=== PATIENT | male | born 1955 | race Caucasian/White ===

== ENCOUNTER 2021-05-21 23:43 | Inpatient (IN) ==
[2021-05-22 00:20] LABS: ABS Basophils 0.1 10^3/ul (0-0.2); ABS Eosinophils 0.5 10^3/ul (0-0.6); ABS Lymphocytes 1.8 10^3/ul (1.0-4.8); ABS Monocytes 0.6 10^3/ul (0-0.8); ABS Neutrophils 4.6 10^3/ul (1.5-7.7); Eosinophil % 7.1 %; Hematocrit 31 % (42-52); Hemoglobin 9.9 g/dL (14.0-18.0); Lymphocyte % 23.9 %; Mean Corpuscular HGB Conc 32 g/dL (31-36); Mean Corpuscular Hemoglobin 25 pg (27-31); Mean Corpuscular Volume 77 fL (80-94); Mean Platelet Volume 6.9 fL (7.4-10.4); Platelet Count 292 10^3/uL (150-450); Red Blood Count 3.97 10^6 /uL (4.18-5.48); Red Cell Distribution Width 16 % (10-15); White Blood Count 7.5 10^3/uL (3.5-10.8)
[2021-05-22 01:10] LABS: Albumin 3.6 g/dL (3.2-5.2); Albumin/Globulin Ratio 1.1 (1-3); EGFR African American 99.3 (>60); EGFR Non-African American 82.1 (>60); Globulin 3.3 g/dL (2-4); Potassium 3.8 mmol/L (3.5-5.0); Total Bilirubin 0.3 mg/dL (0.2-1.0); Total Protein 6.9 g/dL (6.4-8.9)
[2021-05-22] MEDS ORDERED: Iohexol 300 (CONTRAST) 10 ML SDV IV ONE (02:10)
[2021-05-22] MEDS ORDERED: Senna TAB 8.6 mg TAB PO PRN (06:13)
[2021-05-22] MEDS ORDERED: Polyethylene Glycol 3350 17 GM PACKET PO PRN (06:13)
[2021-05-22] MEDS ORDERED: NS 0.9% 500 ml BAG 500 ML IV ONE (06:24)
[2021-05-22 09:13] LABS: ABS Eosinophils 0.1 10^3/ul (0-0.6); ABS Lymphocytes 1.2 10^3/ul (1.0-4.8); ABS Monocytes 0.7 10^3/ul (0-0.8); ABS Neutrophils 8.5 10^3/ul (1.5-7.7); Eosinophil % 0.6 %; Hematocrit 31 % (42-52); Hemoglobin 9.7 g/dL (14.0-18.0); Mean Corpuscular HGB Conc 32 g/dL (31-36); Mean Corpuscular Hemoglobin 24 pg (27-31); Mean Corpuscular Volume 76 fL (80-94); Mean Platelet Volume 6.8 fL (7.4-10.4); Platelet Count 279 10^3/uL (150-450); Red Cell Distribution Width 16 % (10-15); White Blood Count 10.5 10^3/uL (3.5-10.8)
[2021-05-22 09:29] LABS: INR 1.2 (0.86-1.15)
[2021-05-22 09:31] LABS: Calcium 9.1 mg/dL (8.6-10.3); EGFR African American 118.1 (>60); EGFR Non-African American 97.6 (>60); Potassium 4.2 mmol/L (3.5-5.0)
[2021-05-22 10:10] LABS: % Iron Saturation 11 % (15-55); Iron 40 ug/dL (50-212); Total Iron Binding Capacity 377 mcg/dL (250-450); Transferrin 269 mg/dL (203-362); Unsaturated Iron Binding < 362 ug/dL
[2021-05-22 10:49] LABS: HIV 4th Generation Nonreactive (Nonreactive)
[2021-05-22 11:40] LABS: C Reactive Protein 22.38 mg/L (<8.01)
[2021-05-22] MEDS ORDERED: Propofol 10 MG/ML 20 ML BTL ONE (14:47)
[2021-05-22] MEDS ORDERED: Lidocaine 2% PF 5 ML VIAL ONE (14:47)
[2021-05-22] MEDS ORDERED: Ondansetron 4 mg VIAL 2 MG/ML 2 ml VIAL ONE (14:47)
[2021-05-22] MEDS ORDERED: Dexamethasone IV 4 MG/ML VIAL 1 ml VIAL ONE (14:47)
[2021-05-22] MEDS ORDERED: Rocuronium 50 mg VIAL 10 mg/ml 5 ml VIAL (50 mg) ONE (14:48)
[2021-05-22] MEDS ORDERED: Midazolam 2 mg/2 ml VIAL 1 mg/ml 2 ml VIAL (2 mg) ONE (14:48)
[2021-05-22] MEDS ORDERED: fentaNYL 100 mcg/2 ml 50 MCG/ML VIAL ONE (14:48)
[2021-05-22] MEDS ORDERED: Benzocaine/Butamben/Tetracain (CETACAINE - SINGLE USE) 5 gm TOPICAL ONE (15:10)
[2021-05-22] MEDS ORDERED: fentaNYL 100 mcg/2 ml 50 MCG/ML VIAL IV PRN (17:11)
[2021-05-22] MEDS ORDERED: Levalbuterol 1.25MG/0.5ML NEB.SOL INH PRN (17:11)
[2021-05-22] MEDS ORDERED: Naloxone 0.4 mg VIAL 0.4 mg/ml 1 ml VIAL IV PRN (17:11)
[2021-05-22] MEDS ORDERED: Levalbuterol 1.25MG/0.5ML NEB.SOL ONE (17:12)
[2021-05-23 06:35] LABS: ABS Lymphocytes 1.1 10^3/ul (1.0-4.8); ABS Monocytes 0.4 10^3/ul (0-0.8); ABS Neutrophils 6.6 10^3/ul (1.5-7.7); Hematocrit 27 % (42-52); Hemoglobin 8.9 g/dL (14.0-18.0); Lymphocyte % 13.4 %; Mean Corpuscular HGB Conc 32 g/dL (31-36); Mean Corpuscular Hemoglobin 25 pg (27-31); Mean Corpuscular Volume 76 fL (80-94); Mean Platelet Volume 7.3 fL (7.4-10.4); Platelet Count 257 10^3/uL (150-450); Red Blood Count 3.58 10^6 /uL (4.18-5.48); Red Cell Distribution Width 16 % (10-15); White Blood Count 8.1 10^3/uL (3.5-10.8)
[2021-05-23] MEDS ORDERED: Iohexol 300 (CONTRAST) 10 ML SDV IV ONE (14:29)
[2021-05-23 14:39] LABS: Urine Amorphous Crystals Present (Absent); Urine Appearance Clear; Urine Bacteria Absent (Absent); Urine Bilirubin Negative (Negative); Urine Blood Negative (Negative); Urine Color Straw; Urine Glucose Negative (Negative); Urine Ketones Negative (Negative); Urine Nitrite Negative (Negative); Urine Protein Negative (Negative); Urine Red Blood Cell Trace(0-2/hpf) (Absent); Urine Squamous Epithelial Cell Present (Absent); Urine Urobilinogen Negative (Negative); Urine White Blood Cell Trace(0-5/hpf) (Absent)
[2021-05-23] MEDS ORDERED: Morphine 2 MG/ML SYRINGE IV ONE (15:24)
[2021-05-23] MEDS ORDERED: Morphine 2 MG/ML SYRINGE ONE (15:24)
[2021-05-23 15:59] LABS: PCO2 Arterial 57 mmHg (35-45)
[2021-05-23 16:02] LABS: PO2 Arterial 48 mmHg (80-100)
[2021-05-23] MEDS ORDERED: Norepinephrine 16MCG/ML IVPRE (4 MG/250 ML) in NS 0.9% IV ONE (16:52)
[2021-05-23 18:35] VITALS: BP 117/72
[2021-05-25 23:25] LABS: Aspergillus IgG Ab 120 mg/L (<=102)
== END 2021-05-23 18:35 | disposition short-term general hospital (02) | DRG 144 ==
LOC: ED 23:43 → MEDTELE 05-22 05:13 → ICU 05-23 15:28
PROVIDERS: ADMIT Student in an Organized Health Care Education/Training Program; ATTEND Hospitalist